=== PATIENT | male | born 1980 | race Caucasian/White ===

== ENCOUNTER 2018-01-27 14:03 | Emergency (ER) | payer SELFPAY ==
--- NOTE | 2018-01-27 14:20 | ED ---
Throat Pain/Nasal Congestion - HPI Summary HPI Summary: A 37 y/o M presents to ED with c/o sore throat onset today. Associated sx: fever of 101 F. Pt tried to see his PCP but they could not see him until next week. His daughter tested positive for strep throat 6 days ago. 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 Non-smoker, no ETOH. Denies PMHx. This is scribphoebe, Johny Appiah, documenting for attending Dr. Sebastian Dunne MD. - History of Current Complaint Chief Complaint: EDThroatPain Time Seen by Provider: 01/27/18 14:17 Hx Obtained From: Patient, Medical Records Onset/Duration: Lasting Hours, Still Present Severity: Moderate - Allergies/Home Medications Allergies/Adverse Reactions: Allergies Allergy/AdvReac Type Severity Reaction Status Date / Time No Known Allergies Allergy Verified 06/09/12 08:30 PMH/Surg Hx/FS Hx/Imm Hx Previously Healthy: Yes Endocrine/Hematology History: Denies: Other Endocrine/Hematological Disorders Cardiovascular History: Denies: Other Cardiovascular Problems/Disorders Respiratory History: Denies: Other Respiratory Problems/Disorders GI History: Denies: Other GI Disorders History: Denies: Other Problems/Disorders Musculoskeletal History: Denies: Other Musculoskeletal History Sensory History: Denies: Other Sensory Impairments Opthamlomology History: Denies: Other Sensory Impairments Neurological History: Denies: Other Neuro Impairments/Disorders Psychiatric History: Denies: Other Psychiatric Issues/Disorders Infectious Disease History: No Infectious Disease History: Denies: Traveled Outside the [place] in Last 30 Days - Family History Known Family History: Positive: None - Social History Occupation: Employed Full-time Lives: With Family Hx Substance Use: No Substance Use Type: Reports: None Hx Tobacco Use: No Review of Systems Positive: Fever Positive: Sore Throat Negative: Cough All Other Systems Reviewed And Are Negative: Yes Physical Exam - Summary Physical Exam Summary: Appearance: Well appearing, no pain distress Skin: warm, dry, reflects adequate perfusion Head/face: normal Eyes: EOMI, BLANCA ENT: pharynx mucous, no exudates, no erythema Neck: supple, non-tender, no adenopathy Respiratory: CTA, breath sounds present Cardiovascular: RRR, pulses symmetrical Abdomen: non-tender, soft Bowel Sounds: present Musculoskeletal: normal, strength/ROM intact Neuro: normal, sensory motor intact, A&Ox3 Triage Information Reviewed: Yes Vital Signs On Initial Exam: Initial Vitals Temp Pulse Resp BP Pulse Ox 97.8 F 78 18 159/97 97 01/27/18 14:12 01/27/18 14:12 01/27/18 14:12 01/27/18 14:12 01/27/18 14:12 Vital Signs Reviewed: Yes Diagnostics - Vital Signs Vital Signs Temp Pulse Resp BP Pulse Ox 01/27/18 14:12 97.8 F 78 18 159/97 97 - Laboratory Lab Statement: Any lab studies that have been ordered have been reviewed, and results considered in the medical decision making process. EENT Course/Dx - Course Course Of Treatment: Patient with recent exposure to strep tonsillitis and his daughter. He tested negative here with a rapid strep. His findings on exam looked mostly like a postnasal drip associated pharyngitis. Treated with steroids. A culture is pending. - Differential Diagnoses Differential Diagnoses: Other - Pharyngitis versus strep tonsillitis - Diagnoses Provider Diagnoses: Pharyngitis Discharge - Sign-Out/Discharge Documenting (check all that apply): Patient Departure - D/C - Discharge Plan Condition: Improved Disposition: HOME Prescriptions: Dexamethasone TAB* [Decadron TAB*] 8 mg PO DAILY #4 tab Patient Education Materials: Pharyngitis (ED) Referrals: Luis Lr MD [Primary Care Provider] - Additional Instructions: Tylenol, ibuprofen as needed for discomfort. We will call with a positive culture result. Return if worse, new symptoms or other concerns. - Billing Disposition and Condition Condition: IMPROVED Disposition: Home
[2018-01-27 15:12] VITALS: BP 155/100
== END 2018-01-27 15:11 | disposition home or self-care (01) ==
LOC: ED 14:03
DX: J02.9 Acute pharyngitis, unspecified (principal); R50.9 Fever, unspecified
CPT/HCPCS: 87651; 99282